=== PATIENT | male | born 1970 | race Two or more races ===

== ENCOUNTER 2024-08-12 00:17 | Emergency (ER) | payer MEDICAID, OTHER ==
[~2024-08-12] VITALS: Ht 175.3 cm; Wt 77.3 kg
--- NOTE | 2024-08-12 00:41 | ED.PDOC ---
History of Present Illness HPI Comments 54-year-old male brought in by EMS presents with a chief complaint of headache. [facility] and states that he has an 8/10 headache to his left temporal region. Patient is also stating that he feels "weak from the flu since the 08/04/2024" and is photophobic at this time due to the headache. Patient was just seen at [facility] yesterday and discharge after an unremarkable work-up. Patient is tearful and states that his "feet are normally skinny and now they're swollen and I cant walk, and they keep saying nothing is wrong with me". Patients feet are normal in size upon inspection, no wounds, discoloration, or edema noted to either foot. Chief Complaint: Headache Time Seen by MD: 00:28 Reviewed Notes: Medications, Allergies Allergies: Coded Allergies: NO KNOWN ALLERGIES (Unverified , 08/12/24) Information Source: Patient, Emergency Med Personnel Mode of Arrival: EMS Severity: Moderate Timing: Hours Duration: Since onset Prehospital treatment: None Past Medical History PAST MEDICAL HISTORY: Denies Surgical History: Denies all surgeries Family History Family History: Reviewed,noncontributory to illness Social History Smoker: Non-Smoker Alcohol: Denies ETOH Use Drugs: Denies Drug Use Lives In: Home Constitutional: denies: chills, diaphoresis, fatigue, fever, malaise, sweats, weakness, others EENTM: denies: blurred vision, double vision, ear bleeding, ear discharge, ear drainage, ear pain, ear ringing, eye pain, eye redness, hearing loss, mouth pain, mouth swelling, nasal discharge, nose bleeding, nose congestion, nose pain, photophobia, tearing, throat pain, throat swelling, voice changes, others Respiratory: denies: cough, hemoptysis, orthopnea, SOB at rest, shortness of breath, SOB with excertion, stridor, wheezing, others Cardiovascular: denies: chest pain, dizzy spells, diaphoresis, Dyspnea on exertion, edema, irregular heart beat, left arm pain, lightheadedness, palpitations, PND, syncope, others Gastrointestinal: denies: abdomen distended, abdominal pain, blood streaked bowels, constipated, diarrhea, dysphagia, difficulty swallowing, hematemesis, melena, nausea, poor appetite, poor fluid intake, rectal bleeding, rectal pain, vomiting, others Genitourinary: denies: burning, dysuria, flank pain, frequency, hematuria, incontinence, penile discharge, penile sore, pain, testicle pain, testicle swelling, urgency, others Neurological: reports: headache; denies: dizziness, fainting, left sided numbness, left sided weakness, numbness, paresthesia, pre-existing deficit, right sided numbness, right sided weakness, seizure, speech problems, tingling, tremors, weakness, others Musculoskeletal: denies: back pain, gout, joint pain, joint swelling, muscle pain, muscle stiffness, neck pain, others Integumetry: denies: bruises, change in color, change in hair/nails, dryness, laceration, lesions, lumps, rash, wounds, others Allergic/Immunocompromised: denies: Difficulty Healing, Frequent Infections, Hives, Itching, others Hematologic/Lymphatic: denies: anemia, blood clots, easy bleeding, easy brui sing, swollen glands, others Endocrine: denies: excessive hunger, excessive sweating, excessive thirst, ex cessive urination, flushing, intolerance to cold, intolerance to heat, unexplained weight gain, unexplained weight loss, others Psychiatric: denies: anxiety, bipolar disorder, depression, hopeless, panic disorder, schizophrenia, sleepless, suicidal, others All Other Systems: Reviewed and Negative Physical Exam General Appearance: No Apparent Distress, Normal HEENT: Normal ENT Inspection, Pharynx Normal, TMs Normal Neck: Full Range of Motion, Non-Tender, Normal, Normal Inspection Respiratory: Chest Non-Tender, Lungs Clear, No Accessory Muscle Use, No Respiratory Distress, Normal Breath Sounds Cardiovascular: No Edema, No JVD, No Murmur, No Gallop, Normal Peripheral Pulses, Regular Rate/Rhythm Breast Exam: Deferred Gastrointestinal: No Organomegaly, Non Tender, No Pulsatile Mass, Normal Bowel Sounds, Soft Genitalia: Deferred Pelvic: Deferred Rectal: Deferred Extremities: No calf tenderness, Normal capillary refill, Normal inspection, Normal range of motion, Non-tender, No pedal edema Musculoskeletal : Apperance: Normal Neurologic: Alert, rehab director occupational therapist II-XII nml as Tested, No Motor Deficits, Normal Affect, Normal Mood, No Sensory Deficits Cerebellar Function: Normal Reflexes: Normal Skin: Dry, Normal Color, Warm Lymphatic: No Adenopathy Was a procedure done? Was a procedure done?: No Differential Dx Considerations may include: Differential diagnosis includes but not limited to: Migraine, tension headache, intracranial hemorrhage, subarachnoid hemorrhage, cluster headache, meningitis and others X-Ray, Labs, Meds, VS Vital Signs Date Time Temp Pulse Resp B/P (MAP) Pulse Ox O2 Delivery O2 Flow Rate FiO2 08/12/24 02:07 115 19 122/82 (95) 94 08/12/24 01:20 120 12 143/92 (109) 96 08/12/24 00:56 96 Room Air* 0 21 08/12/24 00:26 99.1 122 20 131/84 (100) 95 Current Medications Medications (Trade) Dose Ordered Sig/Neela Route Start Time Stop Time Status Last Admin Acetaminophen (Tylenol Tablet) 1,000 mg ONCE ONCE PO 08/12/24 00:45 08/12/24 00:46 DC 08/12/24 00:58 Time of 1ST Reevaluation: 00:58 Reevaluation 1ST: Unchanged Time of 2ND Reevaluation: 02:00 Reevaluation 2ND: Improved Patient Education/Counseling: Diagnosis, Treatment, Prognosis Family Education/Counseling: No Family Present Departure 1 Departure Time of Disposition: 02:00 Impression: Primary Impression: Headache Additional Impression: Myalgia Disposition: 01 HOME / SELF CARE / HOMELESS Condition: Stable Discharged With: Self Critical Care Note Critical Care Time?: No Stability Stability form required: No I personally scribed for BRITTNY RODRIGUEZ MD ([email or web address]) on 08/12/24 at 00:41. Electronically submitted by Clayton Hanks ([email or web address]). BRITTNY RODRIGUEZ MD Aug 12, 2024 00:41
[2024-08-12 00:56] VITALS: O2SAT 96
[2024-08-12] MEDS: ACETAMINOPHEN 325 MG TAB PO ONE (00:58)
[2024-08-12 02:07] VITALS: BP 122/82; PULSE 115; RESP 19; O2SAT 94
== END 2024-08-12 02:07 | disposition home or self-care (01) ==
LOC: EDBD 00:17 → ER 00:17
DX: R51.9 Headache, unspecified (principal); M79.10 Myalgia, unspecified site